=== PATIENT | male | born 1965 | race Two or more races ===

== ENCOUNTER 2018-07-09 14:16 | Observation (INO) | payer OTHER ==
[2018-07-09] MEDS ORDERED: ROCURONIUM 50 MG/5 ML VIAL ONE ×3 (16:05→21:01)
[2018-07-09] MEDS ORDERED: ONDANSETRON 4 MG/2 ML VIAL IVP PRN ×2 (16:41→21:11)
[2018-07-09] MEDS ORDERED: NS 1,000 ML IV SCH (16:45)
[2018-07-09] MEDS ORDERED: ceFAZolin 2 GM/DEXTROSE 100 ML IV ONE (17:12)
[2018-07-09 18:35] LABS: PLATELET COUNT 170 10^3/uL (150-400)
[2018-07-09] MEDS: HYDROmorphONE/DILAUDID 1 MG/ML INJ IVP PRN (18:36)
[2018-07-09 18:43] LABS: INR 1.26 (0.83-1.16)
--- NOTE | 2018-07-09 20:18 | PDGENHP ---
History & Physical Chief Complaint: INCARCERATED UMBILICAL HERNIA History of Present Illness: MALE WITH CHRONIC CIRHOSIS, TREATED HEP C AND ASCITES. HE PRESENTS WITH INCARCERATED UMBILICAL HERNIA CONTAINING BOWELL. HE HAD SEVERE PAIN BUT NOW IMPROVED. HE ALSO HAS A LARGE RIH CONTAINING ASCITES. ADMIT FOR REPAIR INCARCERATED UMBILICAL HERNIA. RISKS AND OPTIONS FULLY DISCUSSED INCLUDING ASCITES LEAK, RECURRENCE, LIVER FAILURE AND OTHERS Pertinent Past, Social, Family History: PMH: CIRRHOSIS, HEP C,. ROS - 10 PT REVIEW EXCEPT RELATED TO HPI AND PMH. FAM HX NONCONTRIBUTORY. MEDS SEE LIST INCLUDES SPIRONOLACTONE, LASIX, LACTULOSE, OXYCODONE. NKA Relevant Physical Exam: GEN ALERT, COMFORTABLE 53 MALE, AFEBRILE. HEENT: NONICTERIC, NO NODES, NO ORAL LESIONS. NECK SUPPLE, NO BRUITS. CHEST CLEAR. COR RR. ABD: SOFT, +BS, NONREDUCIBLE UMBILICAL HERNIA WITH INFLAMMATION/ ALSO REDUCIBLE RIH, LARGE/ SIGNIFICANT ASCITES. GEN OK. EXTREM NO EDEMA. NEURO PHYSIOLOGIC. PSYCH: ALERT, ORIENTED COOPERATIVE Cardiorespiratory Assessment: IMPR: CIRRHOSIS WITH ASCITES. INCARCERATED UMBILICAL HERNIA. RIH. PLAN: REPAIR WITH OPEN APPROACH/ RISKS AND OPTIONS FULLY DISCUSSED/ ALSO LARGE VOLUME PARASCENTESIS
[2018-07-09] MEDS ORDERED: CEFAZOLIN 2 GM/DEXTROSE/100 ML BAG IV ONE (20:21)
[2018-07-09] MEDS ORDERED: MIDAZOLAM 2 MG/2 ML VIAL IVP ONE (20:27)
[2018-07-09] MEDS ORDERED: NS 1,000 ML IV ONE (20:30)
[2018-07-09] MEDS ORDERED: DEXAMETHASONE 4 MG/ML VIAL ONE (20:31)
[2018-07-09] MEDS ORDERED: SUCCINYLCHOLINE CHLORIDE 200 MG/10 ML SYR IVP ONE (20:31)
[2018-07-09] MEDS ORDERED: ONDANSETRON 4 MG/2 ML VIAL ONE (20:31)
[2018-07-09] MEDS ORDERED: PHENYLEPHRINE HCL 100 MCG/ML SYR ONE (20:31)
[2018-07-09] MEDS ORDERED: fentaNYL 100 MCG/2 ML INJ ONE ×3 (20:32→22:27)
[2018-07-09] MEDS ORDERED: PROPOFOL 200 MG/20 ML VIAL ONE (20:32)
[2018-07-09] MEDS ORDERED: LIDOCAINE 2% 5 ML SDV ONE (20:32)
[2018-07-09] MEDS ORDERED: BUPIVACAINE 0.5% 30 ML SDV ONE (20:41)
--- NOTE | 2018-07-09 20:44 | PDANEPAE ---
ANE History of Present Illness incarcerated ventral hernia ANE Past Medical History - Cardiovascular History Hx Hypertension: No Hx Arrhythmias: No Hx Chest Pain: No Hx Coronary Artery / Peripheral Vascular Disease: No Hx CHF / Valvular Disease: No Hx Palpitations: No - Pulmonary History Hx COPD: No Hx Asthma/Reactive Airway Disease: No Hx Recent Upper Respiratory Infection: No Hx Oxygen in Use at Home: No Hx Sleep Apnea: Yes Sleep Apnea Screening Result - Last Documented: Positive - Endocrine History Hx Diabetes: No Hypothyroid: No Hyperthyroid: No Obesity: yes - Chronic Pain History Chronic Pain: No ANE Review of Systems Review of Systems: - Exercise capacity METS (RN): 4 METS ANE Patient History - Allergies Allergies/Adverse Reactions: No Known Allergies Allergy (Verified 07/09/18 16:02) - Home Medications Home medications: home medication list seen and reviewed Home Medications: Bumetanide [Bumex (*)] 2 mg PO BID 07/09/18 [Last Taken 07/09/18] Lactulose 20 gm PO DAILY 07/09/18 [Last Taken 07/08/18] Spironolactone 100 mg PO DAILY 07/09/18 [Last Taken 07/09/18] oxyCODONE IR [Oxycodone Ir (*)] 5 mg PO Q4H PRN 07/09/18 [Last Taken 07/08/18] - NPO status NPO Since - Liquids (Date): 07/09/18 NPO Since - Solids (Date): 07/09/18 - Anes Hx Anes Hx: no prior problems - Smoking Hx Smoking Status: Current every day smoker ANE Labs/Vital Signs - Labs Result Diagrams: 07/09/18 18:30 07/09/18 18:30 - Vital Signs Blood Pressure: 156/86 Heart Rate: 89 Respiratory Rate: 16 O2 Sat (%): 99 Height: 162.56 cm Weight: 80.1 kg ANE Physical Exam - Airway Neck exam: FROM Mallampati Score: Class 1 Mouth exam: normal dental/mouth exam - Pulmonary Pulmonary: no respiratory distress - Cardiovascular Cardiovascular: regular rate and rhythym - ASA Status ASA Status: III ANE Anesthesia Plan Anesthesia Plan: general endotracheal anesthesia
[2018-07-09] MEDS ORDERED: ESMOLOL HCL 100 MG/10 ML VIAL IV ONE (21:00)
[2018-07-09] MEDS ORDERED: fentaNYL 100 MCG/2 ML INJ IVP PRN (21:11)
[2018-07-09] MEDS ORDERED: ALBUTEROL 3 ML DEYVIAL IH PRN (21:11)
[2018-07-09] MEDS ORDERED: HYDROmorphONE/DILAUDID 2 MG/ML INJ IVP PRN (21:11)
[2018-07-09] MEDS ORDERED: ACETAMINOPHEN 500 MG TAB PO PRN (21:11)
[2018-07-09] MEDS ORDERED: oxyCODONE IR 5 MG TAB PO PRN (21:11)
[2018-07-09] MEDS ORDERED: HYDROCODONE/APAP 5/325 TAB PO PRN (21:11)
[2018-07-09] MEDS ORDERED: NS 500 ML IV PRN (21:11)
[2018-07-09] MEDS ORDERED: NALOXONE HCL 0.4 MG/ML INJ IVP PRN (21:11)
[2018-07-09] MEDS ORDERED: THROMBIN (BOVINE) 20,000 UNIT VIAL TP ONE (21:16)
[2018-07-09] MEDS ORDERED: SUGAMMADEX SODIUM 200 MG/2 ML VIAL IVP ONE (21:32)
--- NOTE | 2018-07-09 22:06 | POSTOPPROG ---
Post Op Note Date of Operation: 07/09/18 Surgeon: Catalino Toledo Anesthesiologist: KAITLYNN Anesthesia: GET(General Endotracheal) Pre-op Diagnosis: INCARCERATED UMBILICAL HERNIA AND ASCITES Post-op Diagnosis: SAME Indication: PAIN Procedure: OPEN REPAIR INCARCERATED UMBILICAL HERNIA/ LARGE VOLUME PARASCENTESIS Findings: 1000CC ASCITES/ VIABLE INCARCERATED SMALL BOWELL/ 4 CM DEFECT Inf/Abcess present in the surg proc area at time of surgery?: Yes Depth: Organ Space EBL: 50-100 Complications: 0 Specimen(s): HERNIA SAC
[2018-07-09] MEDS: oxyCODONE IR 5 MG TAB PO PRN (23:13)
[2018-07-09] MEDS: BUMETANIDE 2 MG TAB PO SCH ×2 (23:14→23:16)
[2018-07-10] MEDS: HYDROmorphONE/DILAUDID 1 MG/ML INJ IVP PRN ×4 (00:36→08:10)
[2018-07-10 05:33] LABS: PLATELET COUNT 165 10^3/uL (150-400)
[2018-07-10 05:40] LABS: INR 1.32 (0.83-1.16); PROTIME(PATIENT) 16.6 SEC (12.0-15.0)
--- NOTE | 2018-07-10 08:38 | POSTANESTH ---
Post Anesthetic Evaluation Cardiovascular Status: Normal, Stable Respiratory Status: Normal, Stable Level of Consciousness/Mental Status: Can Participate in Eval, Mildly Sleepy, Arousable Pain Control: Adequate, Prn Tx Ordered Nausea/Vomiting Control: Adequate, Prn Tx Ordered Complications Possibly Related to Anesthesia: None Noted
[2018-07-10] MEDS ORDERED: LACTULOSE 20 GM/30 ML UDCUP PO SCH (09:00)
[2018-07-10] MEDS ORDERED: SPIRONOLACTONE 100 MG TAB PO SCH (09:00)
--- NOTE | 2018-07-10 11:16 | SOAPPROG ---
SOAP Progress Note Assessment/Plan: Assessment/Plan: 53 Y M c cirrhosis 2/2 now treated Hep C admitted with incarcerated VH containing bowel on CT, s/p urgent VH repair, POD#1. Also, known RIH. Doing well. Pain controlled. Wounds well dressed. Advance diet. Dispo: possibly home today if does well. S: very thankful. passing gas. O: alert, nad ctab rrr abd soft, inc well dressed no saturation to gauze pressure dressing 07/10/18 11:13 Objective: Vital Signs Temp Pulse Resp BP Pulse Ox 36.7 C 80 14 118/71 96 07/10/18 07:57 07/10/18 07:57 07/10/18 07:57 07/10/18 07:57 07/10/18 07:57 Laboratory Results 07/10/18 05:01 07/10/18 05:01 07/09/18 07/10/18 07/11/18 05:59 05:59 05:59 Intake Total 1350 Output Total 470 125 Balance 880 -125 PT 16.6 SEC (12.0-15.0) H 07/10/18 05:01 INR 1.32 (0.83-1.16) H 07/10/18 05:01 ICD10 Worksheet Patient Problems: Problems Problem Status Onset Incarcerated ventral hernia Acute - ICD10 Problem Qualifiers (1) Incarcerated ventral hernia
[2018-07-10] MEDS: oxyCODONE IR 5 MG TAB PO PRN (11:20)
[2018-07-10 11:27] VITALS: BP 124/64
--- NOTE | 2018-07-10 12:31 | ASMTCMCOM ---
CM Note CM Note Notes: Spoke with pt and pt's RN. Pt lives independently with and two daughters. Pt admitted for surgery secondary to incarcerated bowel. Pt has history of Hep C, cirrhosis and drug use. No therapies ordered. Pt likely to discharge independently and pt is comfortable with this plan. No CM needs noted at this time. CM to follow. D/C Plan: independent Date Signed: 07/10/2018 12:30 PM Electronically Signed By:Kimberlee Castillo
--- NOTE | 2018-07-10 14:45 | ASDISCHSUM ---
Discharge Information Plan Status:Home with No Needs Medically Cleared to Leave:07/10/2018 Discharge Date:07/10/2018 01:51 PM CM D/C Disposition:Home, Routine, Self-Care ADT D/C Disposition:Home, Routine, Self-Care Projected Discharge Date:07/10/2018 01:51 PM Transportation at D/C:Family Discharge Delay Reason: Follow-Up Date:07/10/2018 01:51 PM Discharge Slot: Final Diagnosis:incarcerated hernia Placement Information Patient Contact Information Contact Name:MONIQUELISSETT Relationship: Address:[address] [place] [address] Work Phone: [facility] Phone: [facility]/Zip Code:[place] [address] Email: Financial Information Financial Class:Medicare Advantage Plans Primary Plan Desc:[employer] GOLD MEDICARE Primary Plan Number:[id number] Secondary Plan Desc: Secondary Plan Number: Assessment Information LACE LACE Length of stay for Answers: Less than 1 day current admission Acuity / Level of Answers: No Care: Did the patient have an inpatient admission? Comorbidities - select Answers: Moderate or severe liver all that apply or renal disease Other Notes: Hep C # of Emergency department Answers: 0 visits in the last 6 months Social determinants Answers: History of substance abuse (ETOH, street drugs, prescription drugs, etc.) Score: 8 Date Signed: 07/10/2018 02:44 PM Electronically Signed By:Kimberlee Castillo [facility] CM Progress Note CM Note CM Note Notes: Spoke with pt and pt's RN. Pt lives independently with and two daughters. Pt admitted for surgery secondary to incarcerated bowel. Pt has history of Hep C, cirrhosis and drug use. No therapies ordered. Pt likely to discharge independently and pt is comfortable with this plan. No CM needs noted at this time. CM to follow. D/C Plan: independent Date Signed: 07/10/2018 12:30 PM Electronically Signed By:Kimberlee Castillo Case Management Discharge Plan Note Case Management Discharge Discharge Order Complete? Answers: Yes Patient to Obtain Answers: via Family Medications Transportation Arranged Answers: Family/Friends Family Notified Answers: Yes Notes: by pt. Discharge Comments Notes: Pt to discharge home independently. Spoke with pt in the room and he is comfortable with this plan. Pt contacted family for transporation. No CM needs noted at this time. Date Signed: 07/10/2018 02:42 PM Electronically Signed By:Kimberlee Castillo Intervention Information
[2018-07-10] MEDS ORDERED: BUMETANIDE 2 MG TAB PO SCH (21:00)
--- NOTE | 2018-07-17 09:46 | GDS ---
DISCHARGE DIAGNOSES: 1. Incarcerated umbilical hernia. 2. Liver failure. 3. Ascites. 4. History of hepatitis C, now treated. PROCEDURES: Open repair of incarcerated umbilical hernia with large volume paracentesis. INTRAOPERATIVE FINDINGS: Patient was found to have incarcerated viable small bowel in the hernia sac . He had about a 4 cm defect. About 1000 cc of ascites was drained. SPECIAL TESTS: CT scan of the abdomen and pelvis confirmed tightly-looped bowel in the hernia sac as well as saw the known right inguinal hernia. Please see reports for full details. HOSPITAL COURSE: The patient is a 53-year-old male with end-stage liver failure, followed by [facility] with a known periumbilical and right inguinal hernia. He was seen at [facility] earlier in the day for umbilical hernia incarceration. Surgery was recommended. H owever, he wished for the procedure to be done by Dr. Toledo, whom he had seen before in the past. He was directly admitted to the hospital. A CT scan was done and confirmed a tightly-looped bowel in t he hernia sac. He was brought to the operating room and underwent umbilical hernia repair with parac entesis. The procedure was uncomplicated, and he tolerated it well. The patient's postoperative course was relatively uneventful. His bowel function returned, and his d iet was advanced. His pain was controlled. He exhibited no symptoms of worsened liver failure. DISCHARGE INSTRUCTIONS: Patient was discharged to home in stable condition with plans for outpatient followup. We plan to repair his inguinal hernia at a later date. /[id number]/MODL
== END 2018-07-10 13:51 | disposition home or self-care (01) ==
LOC: F3E 15:29
PROVIDERS: ADMIT Surgery; ATTEND Surgery
PROC: 0WQF0ZZ Repair Abdominal Wall, Open Approach (ICD-10-PCS; principal; 2018-07-09 16:45)
DX: K43.6 Other and unspecified ventral hernia with obstruction, without gangrene (principal); K74.60 Unspecified cirrhosis of liver; B19.20 Unspecified viral hepatitis C without hepatic coma; R18.8 Other ascites
CPT/HCPCS: 49561; 74176; 88302; G0378; J0330; J0690; J1100; J1170; J2370; J2405; J2704; J3010

== ENCOUNTER 2018-07-29 06:52 | Day surgery (SDC) | payer OTHER ==
[2018-07-29] MEDS ORDERED: LR 1,000 ML IV ONE (07:34)
[2018-07-29] MEDS ORDERED: ceFAZolin 2 GM/DEXTROSE 100 ML IV ONE (07:56)
--- NOTE | 2018-07-29 07:59 | PDHPUP ---
History & Physical Update H&P update statement: This history and physical update is based on an assessment of the patient which was completed after admission or registration (within 24 hours), but prior to the surgery/procedure. H&P update: H&P reviewed & patient examined, changes noted H&P changes: Hx of urgent umbilical hernia repair due to incarceration and now patient now here for previously scheduled open right inguinal hernia repair. Risks and options discussed. He did well after his most recent surgery. Exam: pulm: CTAB cor: rrr abd: well healed umbilical scar, +large RIH
[2018-07-29] MEDS ORDERED: BUPIVACAINE 0.5% 30 ML SDV ONE (08:02)
[2018-07-29 09:16] LABS: PLATELET COUNT 177 10^3/uL (150-400)
--- NOTE | 2018-07-29 09:28 | PDANEPAE ---
ANE History of Present Illness 53 yo with right inguinal hernia ANE Past Medical History - Cardiovascular History Hx Hypertension: No Hx Arrhythmias: No Hx Chest Pain: No Hx Coronary Artery / Peripheral Vascular Disease: No Hx CHF / Valvular Disease: No Hx Palpitations: No - Pulmonary History Hx COPD: No Hx Asthma/Reactive Airway Disease: No Hx Recent Upper Respiratory Infection: No Hx Oxygen in Use at Home: No Hx Sleep Apnea: Yes - Endocrine History Hx Diabetes: No Hypothyroid: No Hyperthyroid: No Obesity: mild, moderate - Renal History Hx Renal Disorders: No - Liver History Hx Hepatic Disorders: No - Neurological & Psychiatric Hx Hx Neurological and Psychiatric Disorders: No - Cancer History Hx Cancer: No - Congenital Disorder History Hx Congenital Disorders: No - GI History GERD: no - Chronic Pain History Chronic Pain: No - Surgical History Prior Surgeries: umbilical hernia repair ANE Review of Systems Review of systems is: negative Review of Systems: - Exercise capacity Exercise capacity: >=4 METS ANE Patient History - Allergies Allergies/Adverse Reactions: No Known Allergies Allergy (Verified 07/09/18 16:02) - Home Medications Home medications: home medication list seen and reviewed Home Medications: Bumetanide [Bumex (*)] 2 mg PO HS 07/09/18 [Last Taken 07/28/18] Lactulose 20 gm PO DAILY 07/09/18 [Last Taken 07/28/18] Spironolactone 100 mg PO DAILY 07/09/18 [Last Taken 07/28/18] - NPO status NPO Status: no food or drink >8 hours NPO Since - Liquids (Date): 07/28/18 NPO Since - Liquids (Time): 23:30 NPO Since - Solids (Date): 07/28/18 NPO Since - Solids (Time): 21:30 - Anes Hx Anes Hx: no prior problems - Smoking Hx Smoking Status: Current every day smoker Marijuana use: No - Alcohol Use Alcohol Use: Rarely - Family Anes Hx Family Anes Hx: none ANE Labs/Vital Signs - Labs Result Diagrams: 07/29/18 08:55 07/29/18 08:55 - Vital Signs Blood Pressure: 116/69 Heart Rate: 65 Respiratory Rate: 16 O2 Sat (%): 95 Height: 162.56 cm Weight: 86.636 kg ANE Physical Exam - Airway Neck exam: FROM Mallampati Score: Class 2 Mouth exam: normal dental/mouth exam - Pulmonary Pulmonary: no respiratory distress, clear to auscultation - Cardiovascular Cardiovascular: regular rate and rhythym, no murmur, rub, or gallop, edema (to shins bilaterally) - ASA Status ASA Status: II ANE Anesthesia Plan Anesthesia Plan: general endotracheal anesthesia
[2018-07-29] MEDS ORDERED: LIDOCAINE 2% 5 ML SDV ONE (09:39)
[2018-07-29] MEDS ORDERED: PROPOFOL 200 MG/20 ML VIAL ONE (09:39)
[2018-07-29] MEDS ORDERED: ROCURONIUM 50 MG/5 ML VIAL ONE (09:39)
[2018-07-29] MEDS ORDERED: fentaNYL 100 MCG/2 ML INJ ONE ×2 (09:39→11:18)
[2018-07-29] MEDS ORDERED: NALOXONE HCL 0.4 MG/ML INJ IVP PRN (10:05)
[2018-07-29] MEDS ORDERED: MEPERIDINE 25 MG/0.5 ML AMP IVP PRN (10:05)
[2018-07-29] MEDS ORDERED: LABETALOL HCL 5 MG/ML 20 ML MDV IVP PRN (10:05)
[2018-07-29] MEDS ORDERED: PROMETHAZINE HCL 25 MG/ML INJ IVP PRN (10:05)
--- NOTE | 2018-07-29 10:06 | POSTANESTH ---
Post Anesthetic Evaluation Cardiovascular Status: Normal, Stable, Tx Over/Under Hydration Respiratory Status: Normal, Stable Level of Consciousness/Mental Status: Can Participate in Eval Pain Control: Adequate, Prn Tx Ordered Nausea/Vomiting Control: Adequate, Prn Tx Ordered Complications Possibly Related to Anesthesia: None Noted
[2018-07-29 10:21] LABS: INR 1.26 (0.83-1.16)
[2018-07-29] MEDS ORDERED: THROMBIN (BOVINE) 20,000 UNIT SPRAY TP ONE (10:31)
[2018-07-29] MEDS ORDERED: NEOSTIGMINE METHYLSULFATE 5 MG/5 ML SYR ONE (10:41)
[2018-07-29] MEDS ORDERED: GLYCOPYRROLATE 0.2 MG/1 ML VIAL ONE ×2 (10:41)
--- NOTE | 2018-07-29 10:57 | POSTOPPROG ---
Post Op Note Date of Operation: 07/29/18 Surgeon: Catalino Toledo Paving Stone Installer: Abida Oconnor Anesthesiologist: Teo Anesthesia: GET(General Endotracheal) Pre-op Diagnosis: RIH, liver failure Post-op Diagnosis: same Procedure: open RIH repair c mesh, paracentesis Findings: large thick indirect sac. 1460cc ascites removed. Inf/Abcess present in the surg proc area at time of surgery?: No EBL: 50-100 Complications: none Drains: Clif Kerr Specimen(s): hernia sac
[2018-07-29] MEDS: fentaNYL 100 MCG/2 ML INJ IVP PRN ×3 (11:19→11:43)
[2018-07-29] MEDS ORDERED: HYDROmorphONE/DILAUDID 2 MG/ML INJ ONE (11:28)
[2018-07-29] MEDS ORDERED: HYDROCODONE/APAP 5/325 TAB ONE (11:28)
[2018-07-29] MEDS: HYDROmorphONE/DILAUDID 2 MG/ML INJ IVP PRN ×2 (11:29→11:42)
[2018-07-29] MEDS ORDERED: oxyCODONE IR 5 MG TAB ONE (12:41)
[2018-07-29 12:46] VITALS: BP 129/74
[2018-07-29] MEDS ORDERED: oxyCODONE IR 5 MG TAB PO ONE (13:00)
== END 2018-07-29 13:15 | disposition home or self-care (01) ==
LOC: FSGY 06:52
PROVIDERS: ATTEND Surgery
DX: K40.90 Unilateral inguinal hernia, without obstruction or gangrene, not specified as recurrent (principal); K72.90 Hepatic failure, unspecified without coma; R18.8 Other ascites
CPT/HCPCS: C1781; J0690; J1170; J2704; J2710; J3010

== ENCOUNTER 2019-02-11 06:35 | Day surgery (SDC) | payer OTHER | END 2019-02-11 14:13 | disposition home or self-care (01) | LOC: FSGY 06:35 ==